=== PATIENT | male | born 1960 | race Caucasian/White ===

== ENCOUNTER → 2018-02-17 | Day surgery (SDC) | payer BC ==
[~2018-02-17] VITALS: Ht 180.3 cm; Wt 113.4 kg
[~2018-02-17] MED LIST: CELEBREX200 MG PO; DICLOFENAC SODI25 MG PO; LISINOPRIL10 MG PO; PERCOCET 325 MG1 TA6 PO; VICO75300 PO
--- NOTE | ~2018-02-17 | O ---
[place], [place] OPERATIVE NOTE NAME: JAYDEN VALLE UNIT #: [id number] ROOM: DOCTOR: LUCILA SHARMA MD BIRTHDATE: [birth year] DOS: 02/17/2018 INDICATIONS: This is a 57-year-old patient, who has presented with chief complaint of history of colonic polyp 10 years ago, undergoing investigation. PAST ALLERGIES: TO PENICILLIN. PAST MEDICAL HISTORY: Hypertension. PAST SURGICAL HISTORY: Appendectomy, ventral hernia and inguinal hernia, and cholecystectomy. SOCIAL HISTORY: Nonsmoker, nonalcohol consumer. FAMILY HISTORY: Noncontributory. PROCEDURE: Today's procedure part of investigation is colonoscopy plus polypectomy, piecemeal polypectomy, rectal pouch, sessile polyp. PREMEDICATION: Versed and Diprivan. SCOPE: Olympus folding colonoscope 10L video. REPORT: After putting the patient in left lateral position and application of lubricant to the scope, the scope was introduced. Thereafter, under direct visualization, advanced through the length of colon without difficulty to base of cecum, appendiceal orifice identified, ileocecal valve was defined. Scope was gradually withdrawn from ascending, transverse, descending colon. Scattered diverticulosis seen rarely and sessile polypoid lesion in rectal pouch with piecemeal polypectomy eradicated. The patient extubated, tolerated procedure well. IMPRESSION: Rectal pouch, piecemeal polypectomy, sessile polyp, rare scattered diverticulosis. PLAN: High fiber fluid diet. ACTIVITY: Ad tyra. This patient does not need another colonoscopy for 5 years. He has been advised to have routine followup with you in office and p.r.n. visit with us in GI Clinic. I thank you very much indeed for your kind referral. [place], [place] OPERATIVE NOTE NAME: JAYDEN VALLE UNIT #: [id number] ROOM: DOCTOR: LUCILA SHARMA MD BIRTHDATE: [birth year] LUCILA SHARMA MD CM:OPRECORD:OPERATIVE NOTE [id number] LUCILA SHARMA MD 02/17/18 [id number] interface
[2018-02-17 11:25] VITALS: BP 130/70
[2018-02-17 13:44] VITALS: BP 105/47
[2018-02-17 13:59] VITALS: BP 117/63
[2018-02-17 14:14] VITALS: BP 132/32
== END | disposition home or self-care (01) ==
LOC: SDC 02-14 12:30
DX: Z09 Encounter for follow-up examination after completed treatment for conditions other than malignant neoplasm (principal); K62.1 Rectal polyp; Z88.0 Allergy status to penicillin; I10 Essential (primary) hypertension; Z90.49 Acquired absence of other specified parts of digestive tract; K57.30 Diverticulosis of large intestine without perforation or abscess without bleeding; Z87.891 Personal history of nicotine dependence; Z82.49 Family history of ischemic heart disease and other diseases of the circulatory system

== ENCOUNTER 2019-12-25 17:51 | Inpatient (IN) | payer BC, OTHER ==
[~2019-12-25] VITALS: Ht 177.8 cm; Wt 114.1 kg
[2019-12-25 18:02] VITALS: BP 146/93
[2019-12-25 19:50] LABS: BASO % 0.1 % (0.0-1.0); EOS # 0.1 10*3/uL (0.0-0.4); EOS % 0.9 % (1.0-4.0); HEMATOCRIT 44.9 % (42.0-52.0); HEMOGLOBIN 14.8 g/dl (14.0-18.0); LYMPH # 0.8 10*3/uL (1.3-4.4); LYMPH % 8.9 % (27.0-41.0); MEAN CELL VOLUME 85.2 fl (80.0-94.0); MEAN CORPUSCULAR HGB 28.1 pg (27.0-31.0); MEAN PLATELET VOLUME 8.6 fl (9.6-12.3); MONO # 0.8 10*3/uL (0.1-1.0); MONO % 8.7 % (3.0-9.0); NEUT # 7.3 10*3/uL (2.3-7.9); PLATELET COUNT AUTOMATED 346 10*3/uL (130-400); RED BLOOD COUNT 5.27 10*6/uL (4.50-5.90); RED CELL DISTRI WIDTH 12.9 % (0-14.5)
[2019-12-25 20:07] LABS: ALBUMIN 3.8 gm/dl (3.1-4.5); ALKALINE PHOSPHATASE 54 U/L (45-117); BUN 16 mg/dl (7-24); CHLORIDE 103 mmol/L (98-107); CREATININE 1.07 mg/dL (0.70-1.30); LIPASE 40 U/L (73-393); POTASSIUM 3.9 mmol/L (3.5-5.1); SGOT/AST 24 IU/L (3-35); SGPT/ALT 34 U/L (12-78); SODIUM 136 mmol/L (136-145); TOTAL PROTEIN 7.2 gm/dL (6.4-8.2)
[2019-12-25 20:53] VITALS: BP 116/67
--- NOTE | 2019-12-25 21:04 | NUR ---
ALYCE FROM CT TOOK THE ORAL CONTRAST IN TO THE PATIENT.
--- NOTE | 2019-12-25 21:49 | NUR ---
THE PATIENT HAS NOT BEEN ABLE TO GIVE A URINE SAMPLE
--- NOTE | 2019-12-25 22:15 | NUR ---
THE PT IS LYING ON THE BED WATCHING TV WAITING ON HIS CT. CALL LIGHT IS WITHIN REACH. HE STILL CAN NOT PROVIDE A URINE SAMPLE
[2019-12-26 01:13] VITALS: BP 143/82
--- NOTE | 2019-12-26 01:13 | NUR ---
A 59, admitted to , under the services of HAYDEE Chaves DO with a diagnosis of small bowel obstruction. Chief complaint is 2-3 days bloating with vomiting,diarrhea and bloating. Patient arrived via stretcher from ER. Monitor applied. Initial assessment completed. Vital signs taken and recorded. HAYDEE CHAVES DO notified of admission to the . Orders received. See assessment for past medical history, medications and allergies. Patient and/or family oriented to unit. [address] visitation policy reviewed. Clothing/patient valuable form completed. DELLA FENTON
[2019-12-26] MEDS ORDERED: CELECOXIB200 M1 PO (01:25)
--- NOTE | 2019-12-26 04:22 | NUR ---
DILAUDID GIVEN PER ORDER FOR ABD PAIN RATED "6" SEE MAR. NG TUBE CONTINUED LOW INTERMITTENT SUCTION.
--- NOTE | 2019-12-26 05:20 | NUR ---
PATIENT RESTING DILAUDID EFFECTIVE FOR PAIN PER PT.
--- NOTE | 2019-12-26 06:07 | NUR ---
DR. REYNA CALLED IN AND NOTIFIED OF PT. CONDITION,LABS, CT SCAN, NG OUTPUT AND MEDS. ORDER TO INCREASE IV FLUIDS TO 150ML/HR.
[2019-12-26 06:35] LABS: BASO % 0.2 % (0.0-1.0); EOS # 0.1 10*3/uL (0.0-0.4); EOS % 2.1 % (1.0-4.0); HEMATOCRIT 40.4 % (42.0-52.0); HEMOGLOBIN 13.3 g/dl (14.0-18.0); LYMPH % 21.5 % (27.0-41.0); MEAN CELL VOLUME 84.5 fl (80.0-94.0); MEAN CORPUSCULAR HGB 27.8 pg (27.0-31.0); MEAN CORPUSCULAR HGB CONC 32.9 g/dl (33.0-37.0); MEAN PLATELET VOLUME 8.6 fl (9.6-12.3); MONO # 0.7 10*3/uL (0.1-1.0); MONO % 15.3 % (3.0-9.0); NEUT # 2.8 10*3/uL (2.3-7.9); NEUT % 60.5 % (47.0-73.0); PLATELET COUNT AUTOMATED 284 10*3/uL (130-400); RED BLOOD COUNT 4.78 10*6/uL (4.50-5.90); RED CELL DISTRI WIDTH 12.9 % (0-14.5); WHITE BLOOD COUNT 4.7 10*3/uL (4.8-10.8)
[2019-12-26 06:50] LABS: ALBUMIN 3.3 gm/dl (3.1-4.5); BUN 14 mg/dl (7-24); CHLORIDE 103 mmol/L (98-107); CHOLESTEROL 120 mg/dL (<200); CREATININE 0.96 mg/dL (0.70-1.30); PHOSPHOROUS 2.7 mg/dL (2.5-4.9); POTASSIUM 3.7 mmol/L (3.5-5.1); SGOT/AST 126 IU/L (3-35); SGPT/ALT 111 U/L (12-78); SODIUM 136 mmol/L (136-145); TRIGLYCERIDES 57 mg/dl (<150); VLDL CHOLESTEROL 11 mg/dL (6-40)
[2019-12-26 06:55] LABS: ALKALINE PHOSPHATASE 91 U/L (45-117); HDL CHOLESTEROL 61 mg/dl (40-60); LDL CHOLESTEROL 48 mg/dL (9-159); TOTAL PROTEIN 6.4 gm/dL (6.4-8.2)
[2019-12-26 07:37] LABS: INTERNATIONAL NORM RATIO 0.9 (2.0-3.5)
[2019-12-26 08:00] VITALS: BP 135/79
[2019-12-26 10:19] LABS: BILIRUBIN NEGATIVE (NEGATIVE); BLOOD NEGATIVE (NEGATIVE); CLARITY CLEAR (CLEAR); COLOR YELLOW (YELLOW); GLUCOSE NEGATIVE (NEGATIVE); KETONE NEGATIVE (NEGATIVE); PH 6.5 (5.0-9.0)
[2019-12-26 10:20] LABS: LEUKO ESTERASE NEGATIVE (NEGATIVE); NITRITE NEGATIVE (NEGATIVE)
[2019-12-26 10:30] LABS: WBC 0-2 wbc/hpf (0-5)
[2019-12-26 10:31] LABS: BACTERIA TRACE
[2019-12-26 12:00] VITALS: BP 123/68; BP 128/70
[2019-12-26 16:00] VITALS: BP 133/64
[2019-12-26 20:00] VITALS: BP 132/76
--- NOTE | 2019-12-26 20:33 | NUR ---
CALLED DR. RIVERA AND NOTIFIED HIM PATIENT WOULD LIKE SOMETHING TO HELP HIM SLEEP TONIGHT. ORDER FOR RESTORIL IS ALREADY PLACED DR. RIVERA SAID ITS ALRIGHT TO TURN NG SUCTION OFF FOR HALF AN HOUR THEN RESTART SUCTION.
--- NOTE | 2019-12-26 20:42 | NUR ---
24 HR chart check completed.
--- NOTE | 2019-12-26 21:13 | NUR ---
RESTORIL GIVEN PER ORDER FOR INSOMNIA. NG SUCTION TURNED OFF.
--- NOTE | 2019-12-26 22:50 | NUR ---
resumed NG suction to low intermittent. patient sleeping. restoril effective.
[2019-12-27] VITALS: BP 151/82
--- NOTE | 2019-12-27 02:40 | NUR ---
pt. sleeping no acute distress noted. NG tube remains intact and suction continues.
[2019-12-27 06:18] LABS: BASO % 0.3 % (0.0-1.0); EOS # 0.2 10*3/uL (0.0-0.4); EOS % 2.2 % (1.0-4.0); HEMATOCRIT 39.8 % (42.0-52.0); HEMOGLOBIN 13.1 g/dl (14.0-18.0); LYMPH % 13.6 % (27.0-41.0); MEAN CORPUSCULAR HGB CONC 32.9 g/dl (33.0-37.0); MEAN PLATELET VOLUME 8.9 fl (9.6-12.3); MONO # 0.7 10*3/uL (0.1-1.0); MONO % 8.8 % (3.0-9.0); NEUT # 5.5 10*3/uL (2.3-7.9); NEUT % 74.7 % (47.0-73.0); PLATELET COUNT AUTOMATED 320 10*3/uL (130-400); RED BLOOD COUNT 4.68 10*6/uL (4.50-5.90); RED CELL DISTRI WIDTH 12.4 % (0-14.5); WHITE BLOOD COUNT 7.4 10*3/uL (4.8-10.8)
[2019-12-27 06:35] LABS: ALBUMIN 3.2 gm/dl (3.1-4.5); ALKALINE PHOSPHATASE 78 U/L (45-117); BUN 13 mg/dl (7-24); CHLORIDE 106 mmol/L (98-107); CREATININE 0.93 mg/dL (0.70-1.30); POTASSIUM 3.6 mmol/L (3.5-5.1); SGOT/AST 44 IU/L (3-35); SGPT/ALT 78 U/L (12-78); SODIUM 141 mmol/L (136-145); TOTAL PROTEIN 6.3 gm/dL (6.4-8.2)
[2019-12-27 08:00] VITALS: BP 118/67
--- NOTE | 2019-12-27 09:00 | NUR ---
Radiator Core Tester in to talk to patient. Patient states lives at home with . There are no steps in the home. Physician: vadim ramey Pharmacy: [facility] health services: none Patient's level of ADLs: INDEPENDENT Patient has working utilities: all working DME: none Follow-up physician's appointment after d/c: will be made by hospitalist nurse director upon discharge Does patient want to access PORTAL?: no Discharge plan discussed with patient, he states he lives at home with his , he is independent in adls and ambulation, drives, recently retired, he states he will return home when medically stable and denies any home needs, case management will follow. RJ FAIR
[2019-12-27 12:00] VITALS: BP 127/61
[2019-12-27 16:00] VITALS: BP 148/83
[2019-12-27 20:00] VITALS: BP 149/78
--- NOTE | 2019-12-27 21:18 | NUR ---
RESTORIL GIVEN PER ORDER FOR INSOMNIA. NG TUBE SUCTION STOPPED FOR 30 MINUTES AND TO BE RESUMED AFTER THAT.
--- NOTE | 2019-12-27 22:27 | NUR ---
24 HR chart check completed.
--- NOTE | 2019-12-27 22:30 | NUR ---
PT. SLEEPING. RESTORIL EFFECTIVE.
[2019-12-28] VITALS: BP 146/73
[2019-12-28 06:14] LABS: BASO % 0.4 % (0.0-1.0); EOS # 0.2 10*3/uL (0.0-0.4); EOS % 3.1 % (1.0-4.0); HEMATOCRIT 37.3 % (42.0-52.0); HEMOGLOBIN 12.5 g/dl (14.0-18.0); LYMPH # 1.2 10*3/uL (1.3-4.4); LYMPH % 15.8 % (27.0-41.0); MEAN CORPUSCULAR HGB 28.5 pg (27.0-31.0); MEAN CORPUSCULAR HGB CONC 33.5 g/dl (33.0-37.0); MEAN PLATELET VOLUME 8.9 fl (9.6-12.3); MONO # 0.6 10*3/uL (0.1-1.0); MONO % 8.5 % (3.0-9.0); NEUT # 5.4 10*3/uL (2.3-7.9); NEUT % 71.5 % (47.0-73.0); PLATELET COUNT AUTOMATED 315 10*3/uL (130-400); RED BLOOD COUNT 4.39 10*6/uL (4.50-5.90); RED CELL DISTRI WIDTH 12.3 % (0-14.5); WHITE BLOOD COUNT 7.5 10*3/uL (4.8-10.8)
[2019-12-28 06:26] LABS: BUN 13 mg/dl (7-24); CHLORIDE 112 mmol/L (98-107); CREATININE 0.98 mg/dL (0.70-1.30); PHOSPHOROUS 2.9 mg/dL (2.5-4.9); SODIUM 144 mmol/L (136-145)
[2019-12-28 06:27] LABS: POTASSIUM 4.1 mmol/L (3.5-5.1)
[2019-12-28 08:00] VITALS: BP 146/79
--- NOTE | 2019-12-28 08:13 | NUR ---
NG tube removed per order. Tolerated without any issues. Given water and juice. Explained choices on clear liquid diet.
--- NOTE | 2019-12-28 09:00 | NUR ---
case management visits with patient, he states he will return home when medically stable, patient denies any home needs
--- NOTE | 2019-12-28 09:05 | NUR ---
Lorena David in seeing pt. States to DC IVF. Pt left floor for KUB.
--- NOTE | 2019-12-28 10:37 | NUR ---
PT up ambulating in vora.
[2019-12-28 12:00] VITALS: BP 153/88
[2019-12-28 16:00] VITALS: BP 131/72
--- NOTE | 2019-12-28 16:33 | NUR ---
C/o itching to back. Pt has red rash noted to back. Pt states it started after putting on a new hospital gown. Notified Dr. Camejo and new orders received. Medicated with benedryl iv order. Pt iv wrapped so he could take a shower.
--- NOTE | 2019-12-28 17:15 | NUR ---
States itching was relieved by benedryl.
[2019-12-28 20:00] VITALS: BP 129/66
[2019-12-29] VITALS: BP 122/70
[2019-12-29 06:19] LABS: BASO # 0.1 10*3/uL (0.0-0.1); BASO % 0.6 % (0.0-1.0); EOS # 0.3 10*3/uL (0.0-0.4); EOS % 4.1 % (1.0-4.0); HEMOGLOBIN 12.1 g/dl (14.0-18.0); LYMPH # 1.5 10*3/uL (1.3-4.4); LYMPH % 19.1 % (27.0-41.0); MEAN CELL VOLUME 84.7 fl (80.0-94.0); MEAN CORPUSCULAR HGB 27.7 pg (27.0-31.0); MEAN CORPUSCULAR HGB CONC 32.7 g/dl (33.0-37.0); MEAN PLATELET VOLUME 8.7 fl (9.6-12.3); MONO # 0.8 10*3/uL (0.1-1.0); MONO % 10.3 % (3.0-9.0); PLATELET COUNT AUTOMATED 321 10*3/uL (130-400); RED BLOOD COUNT 4.37 10*6/uL (4.50-5.90); RED CELL DISTRI WIDTH 12.5 % (0-14.5); WHITE BLOOD COUNT 7.7 10*3/uL (4.8-10.8)
[2019-12-29 06:44] LABS: BUN 8 mg/dl (7-24); CHLORIDE 109 mmol/L (98-107); CREATININE 1.02 mg/dL (0.70-1.30); POTASSIUM 3.7 mmol/L (3.5-5.1); SGOT/AST 54 IU/L (3-35); SGPT/ALT 76 U/L (12-78); SODIUM 142 mmol/L (136-145)
[2019-12-29 06:46] LABS: ALKALINE PHOSPHATASE 69 U/L (45-117); TOTAL PROTEIN 5.8 gm/dL (6.4-8.2)
[2019-12-29 07:55] VITALS: BP 140/92
--- NOTE | 2019-12-29 07:55 | NUR ---
Up ambulatory in vora. Notified of new diet order and if tolerated may go home per Dr. Irving. Lungs clear throughout, no sob noted. Pox was 96% on RA. Abdomen bs x4, rotund abdomen. Passing flatus and had soft bm this am per pt. BP was 140/92 but pt takes lisinopril at home and he has not had it since admission.
--- NOTE | 2019-12-29 09:30 | NUR ---
Pt ate regular breakfast without any issues.
--- NOTE | 2019-12-29 10:24 | NUR ---
Discharge instructions reviewed with patient/family. Patient receptive and verbalizes understanding. Follow-up care arranged. Written instructions given to patient/family. NATHEN HARPER
--- NOTE | 2019-12-29 10:44 | NUR ---
Pt left in care of . Declined wheelchair.
== END 2019-12-29 10:44 | disposition home or self-care (01) | DRG 389 ==
LOC: ED 17:51 → 5E 12-26 00:38 → EDHOLD 12-26 00:38 → 5E 12-26 00:39
PROVIDERS: Emergency Medicine; Registered Nurse; Student in an Organized Health Care Education/Training Program; ADMIT Internal Medicine
PROC: 0D9670Z Drainage of Stomach with Drainage Device, Via Natural or Artificial Opening (ICD-10-PCS; principal; 2019-12-25)
DX: K56.600 Partial intestinal obstruction, unspecified as to cause (principal); E44.1 Mild protein-calorie malnutrition; E80.6 Other disorders of bilirubin metabolism; D72.9 Disorder of white blood cells, unspecified; D72.818 Other decreased white blood cell count; M19.90 Unspecified osteoarthritis, unspecified site; I10 Essential (primary) hypertension; R73.9 Hyperglycemia, unspecified; Z68.36 Body mass index [BMI] 36.0-36.9, adult; Z90.49 Acquired absence of other specified parts of digestive tract; Z88.0 Allergy status to penicillin; Z87.891 Personal history of nicotine dependence; Z80.1 Family history of malignant neoplasm of trachea, bronchus and lung; Z79.899 Other long term (current) drug therapy

== ENCOUNTER 2022-04-19 09:34 | Inpatient (IN) | payer BC, OTHER ==
[~2022-04-19] VITALS: Ht 180.3 cm; Wt 107.6 kg
[~2022-04-19 09:34] MED LIST changes: +CELECOXIB200 M1 PO
[2022-04-19 09:39] VITALS: BP 122/83
[2022-04-19] MEDS ORDERED: HYDROCODONE-AC1 EAC2 PO (09:51)
[2022-04-19 09:58] LABS: BASO # 0.1 10*3/uL (0.0-0.1); BASO % 0.4 % (0.0-1.0); EOS # 0.1 10*3/uL (0.0-0.4); EOS % 0.8 % (1.0-4.0); HEMATOCRIT 48.3 % (42.0-52.0); MEAN CELL VOLUME 83.6 fl (80.0-94.0); MEAN CORPUSCULAR HGB CONC 33.5 g/dl (33.0-37.0); MEAN PLATELET VOLUME 8.3 fl (9.6-12.3); MONO # 0.9 10*3/uL (0.1-1.0); MONO % 6.5 % (3.0-9.0); NEUT # 12.1 10*3/uL (2.3-7.9); NEUT % 84.9 % (47.0-73.0); PLATELET COUNT AUTOMATED 399 10*3/uL (130-400); RED BLOOD COUNT 5.78 10*6/uL (4.50-5.90); WHITE BLOOD COUNT 14.2 10*3/uL (4.8-10.8)
[2022-04-19 10:09] LABS: INTERNATIONAL NORM RATIO 0.9 (2.0-3.5)
[2022-04-19 10:14] LABS: ALKALINE PHOSPHATASE 62 U/L (45-117); BUN 19 mg/dl (7-24); CHLORIDE 106 mmol/L (98-107); LIPASE 54 U/L (73-393); POTASSIUM 4.1 mmol/L (3.5-5.1); SGOT/AST 15 IU/L (3-35); SGPT/ALT 24 U/L (12-78); SODIUM 136 mmol/L (136-145); TOTAL PROTEIN 7.8 gm/dL (6.4-8.2)
[2022-04-19 10:18] LABS: BILIRUBIN 1+ (Negative); BLOOD Negative (Negative); CLARITY Clear (Clear); COLOR Dark Yellow (Yellow); GLUCOSE Negative (Negative); KETONE Trace (Negative); LEUKO ESTERASE Negative (Negative); NITRITE Negative (Negative); SPECIFIC GRAVITY >= 1.030 (1.001-1.030)
[2022-04-19 10:40] LABS: BACTERIA 3+
[2022-04-19 10:41] LABS: MUCOUS 1+
[2022-04-19 14:35] VITALS: BP 130/74
[2022-04-19 16:00] VITALS: BP 134/88
[2022-04-19 20:00] VITALS: BP 133/82
[2022-04-20] VITALS: BP 134/82
[2022-04-20 06:10] LABS: CHLORIDE 104 mmol/L (98-107); POTASSIUM 4.1 mmol/L (3.5-5.1); SODIUM 139 mmol/L (136-145)
[2022-04-20 06:13] LABS: BASO % 0.2 % (0.0-1.0); EOS % 0.2 % (1.0-4.0); HEMATOCRIT 47.1 % (42.0-52.0); LYMPH # 0.8 10*3/uL (1.3-4.4); LYMPH % 5.9 % (27.0-41.0); MEAN CELL VOLUME 86.3 fl (80.0-94.0); MEAN CORPUSCULAR HGB 28.6 pg (27.0-31.0); MEAN CORPUSCULAR HGB CONC 33.1 g/dl (33.0-37.0); MEAN PLATELET VOLUME 8.7 fl (9.6-12.3); MONO # 1.2 10*3/uL (0.1-1.0); MONO % 8.8 % (3.0-9.0); NEUT # 11.8 10*3/uL (2.3-7.9); NEUT % 84.6 % (47.0-73.0); PLATELET COUNT AUTOMATED 418 10*3/uL (130-400); RED BLOOD COUNT 5.46 10*6/uL (4.50-5.90); RED CELL DISTRI WIDTH 13.5 % (0-14.5)
[2022-04-20 06:19] LABS: ALKALINE PHOSPHATASE 55 U/L (45-117); BUN 18 mg/dl (7-24); CREATININE 1.15 mg/dL (0.70-1.30); FREE T4 0.98 ng/dl (0.76-1.46); SGOT/AST 17 IU/L (3-35); SGPT/ALT 22 U/L (12-78); THYROID STIM HORMONE (HS) 0.543 uIU/ml (0.358-4.75); TOTAL PROTEIN 7.1 gm/dL (6.4-8.2)
[2022-04-20 08:00] VITALS: BP 137/86
[2022-04-20 12:00] VITALS: BP 146/86
[2022-04-20 16:00] VITALS: BP 132/76
[2022-04-20 20:00] VITALS: BP 137/87
[2022-04-21] VITALS: BP 144/87
[2022-04-21 05:35] LABS: BUN 20 mg/dl (7-24); CHLORIDE 103 mmol/L (98-107); POTASSIUM 3.8 mmol/L (3.5-5.1); SODIUM 138 mmol/L (136-145)
[2022-04-21 06:18] LABS: BASO % 0.1 % (0.0-1.0); EOS % 0.4 % (1.0-4.0); LYMPH # 0.7 10*3/uL (1.3-4.4); LYMPH % 10.3 % (27.0-41.0); MEAN CELL VOLUME 86.1 fl (80.0-94.0); MEAN CORPUSCULAR HGB 28.6 pg (27.0-31.0); MEAN CORPUSCULAR HGB CONC 33.3 g/dl (33.0-37.0); MEAN PLATELET VOLUME 8.8 fl (9.6-12.3); MONO # 1.1 10*3/uL (0.1-1.0); MONO % 15.1 % (3.0-9.0); NEUT # 5.2 10*3/uL (2.3-7.9); NEUT % 73.8 % (47.0-73.0); PLATELET COUNT AUTOMATED 415 10*3/uL (130-400); RED BLOOD COUNT 5.69 10*6/uL (4.50-5.90); RED CELL DISTRI WIDTH 13.1 % (0-14.5); WHITE BLOOD COUNT 7.1 10*3/uL (4.8-10.8)
[2022-04-21 08:00] VITALS: BP 137/83
[2022-04-21 11:56] VITALS: BP 136/73
[2022-04-21 16:00] VITALS: BP 145/82
[2022-04-21 20:00] VITALS: BP 139/85
[2022-04-22] VITALS: BP 145/90
[2022-04-22 06:07] LABS: BASO % 0.5 % (0.0-1.0); EOS # 0.2 10*3/uL (0.0-0.4); EOS % 4.1 % (1.0-4.0); HEMATOCRIT 43.5 % (42.0-52.0); LYMPH # 1.3 10*3/uL (1.3-4.4); LYMPH % 22.1 % (27.0-41.0); MEAN CELL VOLUME 84.8 fl (80.0-94.0); MEAN CORPUSCULAR HGB 27.9 pg (27.0-31.0); MEAN CORPUSCULAR HGB CONC 32.9 g/dl (33.0-37.0); MEAN PLATELET VOLUME 8.7 fl (9.6-12.3); MONO % 17.3 % (3.0-9.0); NEUT # 3.3 10*3/uL (2.3-7.9); NEUT % 55.7 % (47.0-73.0); PLATELET COUNT AUTOMATED 381 10*3/uL (130-400); RED BLOOD COUNT 5.13 10*6/uL (4.50-5.90); RED CELL DISTRI WIDTH 12.9 % (0-14.5); WHITE BLOOD COUNT 5.9 10*3/uL (4.8-10.8)
[2022-04-22 06:12] LABS: CHLORIDE 98 mmol/L (98-107); CREATININE 1.03 mg/dL (0.70-1.30); POTASSIUM 3.6 mmol/L (3.5-5.1); SODIUM 135 mmol/L (136-145)
[2022-04-22 06:19] LABS: BUN 20 mg/dl (7-24)
[2022-04-22 08:00] VITALS: BP 145/87
[2022-04-22 12:00] VITALS: BP 133/79
[2022-04-22 16:00] VITALS: BP 134/84
[2022-04-22 20:00] VITALS: BP 136/83
[2022-04-23] VITALS: BP 129/72
[2022-04-23 06:04] LABS: BASO % 0.5 % (0.0-1.0); BUN 17 mg/dl (7-24); CHLORIDE 99 mmol/L (98-107); EOS # 0.2 10*3/uL (0.0-0.4); HEMATOCRIT 43.1 % (42.0-52.0); LYMPH # 1.1 10*3/uL (1.3-4.4); LYMPH % 14.7 % (27.0-41.0); MEAN CORPUSCULAR HGB 28.7 pg (27.0-31.0); MEAN CORPUSCULAR HGB CONC 34.1 g/dl (33.0-37.0); MEAN PLATELET VOLUME 8.6 fl (9.6-12.3); MONO # 1.2 10*3/uL (0.1-1.0); MONO % 15.9 % (3.0-9.0); NEUT # 4.9 10*3/uL (2.3-7.9); NEUT % 65.4 % (47.0-73.0); PLATELET COUNT AUTOMATED 423 10*3/uL (130-400); POTASSIUM 3.9 mmol/L (3.5-5.1); RED BLOOD COUNT 5.13 10*6/uL (4.50-5.90); RED CELL DISTRI WIDTH 12.4 % (0-14.5); SODIUM 133 mmol/L (136-145); WHITE BLOOD COUNT 7.6 10*3/uL (4.8-10.8)
[2022-04-23 06:06] LABS: CREATININE 1.01 mg/dL (0.70-1.30)
[2022-04-23 08:00] VITALS: BP 150/92
[2022-04-23] MEDS ORDERED: METAMUCIL FIBE3.4 GM PO (10:43)
== END 2022-04-23 11:45 | disposition home or self-care (01) | DRG 389 ==
LOC: ED 09:34 → EDHOLD 13:11 → 4E 13:11
PROVIDERS: Emergency Medicine; Internal Medicine; ADMIT Internal Medicine; ATTEND Internal Medicine
PROC: 0D9670Z Drainage of Stomach with Drainage Device, Via Natural or Artificial Opening (ICD-10-PCS; principal; 2022-04-20)
DX: K56.699 Other intestinal obstruction unspecified as to partial versus complete obstruction (principal); E87.2 Acidosis; R65.10 Systemic inflammatory response syndrome (SIRS) of non-infectious origin without acute organ dysfunction; R73.9 Hyperglycemia, unspecified; R82.71 Bacteriuria; E83.41 Hypermagnesemia; D75.839 Thrombocytosis, unspecified; M19.90 Unspecified osteoarthritis, unspecified site; Z88.0 Allergy status to penicillin; Z79.899 Other long term (current) drug therapy; Z90.49 Acquired absence of other specified parts of digestive tract; Z87.891 Personal history of nicotine dependence; Z80.1 Family history of malignant neoplasm of trachea, bronchus and lung